=== PATIENT | female | born 1930 | race Asian ===

== ENCOUNTER 2017-03-15 14:00 | Outpatient (RCR) | payer OTHER | END 2017-04-03 | disposition home or self-care (01) | LOC: PTY 14:00 | DX: M79.601 Pain in right arm (principal) ==

== ENCOUNTER 2017-04-05 14:00 | Outpatient (RCR) | payer OTHER | END 2017-05-03 | disposition home or self-care (01) | LOC: PTY 14:00 | DX: M79.601 Pain in right arm (principal) ==

== ENCOUNTER 2017-05-17 14:24 | Outpatient (RCR) | payer OTHER | END 2017-06-03 | disposition home or self-care (01) | LOC: PTY 14:24 | DX: M79.601 Pain in right arm (principal) ==

== ENCOUNTER 2017-06-14 14:00 | Outpatient (RCR) | payer OTHER | END 2017-07-04 | disposition home or self-care (01) | LOC: PTY 14:00 | DX: M79.601 Pain in right arm (principal) ==